=== PATIENT | male | born 1960 | race Caucasian/White ===

== ENCOUNTER → 2017-07-21 | Outpatient (CLI) | payer BC ==
[2015-11-02 14:38] VITALS: BP 112/68
[~2017-07-21] MED LIST: AMIO200T PO; AMIO200T2 PO; APIX5TAB PO; ASPI-252 PO; ATOR10TA PO; ATOR40TA PO; Aspirin PO; CLOP75TA57 PO; DIGO125T16 PO; FURO-68 PO; FURO-69 PO; Lisinopril PO; Metolazone PO; Metoprolol Tartrate PO; Oxycodone Hcl/Acetaminophen PO; POTA20TA12 PO; RIVA10TA PO; Sennosides/Docusate Sodium PO; TAMS0.4C97 PO
--- NOTE | 2017-07-21 12:03 | CARD ---
APPROVED REPORT EXAM: Two-dimensional and M-mode echocardiogram with Doppler and color Doppler. Other Information Quality : FairHR: 70bpm Rhythm : NSR INDICATION Cardiac Disease: CAD RISK FACTORS Obesity 2D DIMENSIONS RVDd3.5 (2.9-3.5cm)Left Atrium(2D)3.0 (1.6-4.0cm) IVSd1.0 (0.7-1.1cm)Aortic Root(2D)3.7 (2.0-3.7cm) LVDd6.7 (3.9-5.9cm)LVOT Diameter2.9 (1.8-2.4cm) PWd1.3 (0.7-1.1cm)LVDs5.8 (2.5-4.0cm) FS (%) 14.2 %SV68.9 ml Aortic Valve AoV Peak Rayshawn.128.2cm/sAoV VTI23.9cm AO Peak GR.6.6mmHgLVOT Peak Rayshawn.93.2cm/s AO Mean GR.4mmHgAVA (VMAX)4.82cm2 Mitral Valve MV E Peak Gr.4mmHgMV E Mean Gr.2mmHg Pulmonary Valve PV Peak [id number]/s Tricuspid Valve TR P. [id number]/sTR Peak Gr.18mmHg LEFT VENTRICLE The Left Ventricle is mildly dilated. There is mild asymmetric left ventricular hypertrophy. Left winston tricle systolic function is moderately impaired. The Ejection Fraction is 35-40%. Abnormal septal wal l motion is noted. Akinetic mid and apical anteroseptal segments.All other LV brown are moderately hy pokinetic. Tissue Doppler imaging reveals moderate left ventricular diastolic dysfunction. No left ve ntricle thrombus noted on this study. RIGHT VENTRICLE The right ventricle is normal size. There is normal right ventricular wall thickness. The right ventr icular systolic function is normal. ATRIA The left atrium is moderately dilated. The right atrium size is normal. The right atrial mass seen on the previous examination was not seen at this time. The interatrial septum is intact with no evidenc e for an atrial septal defect or patent foramen ovale as noted on 2-D or Doppler imaging. AORTIC VALVE The aortic valve is not well visualized but appears mildly calcified and opens adequately. Doppler an d Color Flow revealed no significant aortic regurgitation. There is no significant aortic valvular st enosis. MITRAL VALVE Mitral annular calcification is mild. The mitral valve leaflets are thickened. There is no evidence o f mitral valve prolapse. There is no mitral valve stenosis. Doppler and Color Flow revealed mild mitr al regurgitation. TRICUSPID VALVE Doppler and Color Flow revealed mild tricuspid regurgitation. The pulmonary artery systolic pressure is estimated at 21 mmHg. PULMONIC VALVE The pulmonic valve is not well visualized but appears to open adequately. Doppler and Color Flow reve aled no pulmonic valvular regurgitation. There is no pulmonic valvular stenosis by spectral Doppler. GREAT VESSELS The aortic root is normal in size. The ascending aorta is normal in size. The pulmonary artery is nor mal. The IVC is normal in size and collapses >50% with inspiration. PERICARDIAL EFFUSION There is no evidence of significant pericardial effusion. Critical Notification Critical Value: No <Conclusion> The Left Ventricle is mildly dilated. Left ventricle systolic function is moderately impaired. The Ejection Fraction is 35-40%. There is mild asymmetric left ventricular hypertrophy. Abnormal septal wall motion is noted. Akinetic mid and apical anteroseptal segments.All other LV wal ls are moderately hypokinetic. The right atrium size is normal. The right atrial mass seen on the previous examination was not seen at this time. There is no significant aortic valvular stenosis. Doppler and Color Flow revealed no significant aortic regurgitation. Doppler and Color Flow revealed mild mitral regurgitation. Doppler and Color Flow revealed mild tricuspid regurgitation. The pulmonary artery systolic pressure is estimated at 21 mmHg.
== END | disposition home or self-care (01) ==
LOC: ECHO 09:43
PROVIDERS: ATTEND Internal Medicine Cardiovascular Disease
DX: I08.1 Rheumatic disorders of both mitral and tricuspid valves (principal); I25.5 Ischemic cardiomyopathy; I25.10 Atherosclerotic heart disease of native coronary artery without angina pectoris; I51.7 Cardiomegaly
CPT/HCPCS: 93306